=== PATIENT | male | born 1960 | race American Indian/Alaskan Native ===

== ENCOUNTER 2017-09-22 21:08 | Emergency (ER) | payer SELFPAY ==
[2017-09-22 22:18] VITALS: BP 134/90
[2017-09-22] MEDS ORDERED: MOTRIN PO ONE (22:19)
[2017-09-23] MEDS ORDERED: FLEXERIL PO ONE (00:45)
--- NOTE | 2017-09-23 01:10 | Emergency Department Report ---
ED Back Pain/Injury HPI - General Chief Complaint: Back Pain/Injury Stated Complaint: BACK PAIN Time Seen by Provider: 09/23/17 00:44 Source: patient Limitations: No Limitations - History of Present Illness Initial Comments: 57-year-old -[place] male comes in complaining of muscle spasms in his lower back 3 days. He reports he gets no relief from icy hot. He has not tried any [id number] pain medication. Patient reports that he has similar in the past. He does report he has had neck and shoulder fracture in 2003. Patient is aware that he has arthritis. MD Complaint: back pain, other (muscle spasms) -: days(s) (3) Similar Symptoms Previously: Yes Severity scale (0 -10): 10 Quality: aching, other (tightness) Consistency: constant Improves With: none Worsens With: movement, supine, sitting upright, walking Associated Symptoms: denies: numbness, difficulty urinating, incontinence, fever /chills Treatments Prior to Arrival: other (icy hot) - Related Data Previous Rx's Medication Instructions Recorded Last Taken Type Cyclobenzaprine [Flexeril 10 MG 10 mg PO TID #30 tablet 09/23/17 Unknown Rx TAB] Ibuprofen [Motrin 600 MG tab] 600 mg PO Q8H PRN #30 tablet 09/23/17 Unknown Rx Allergies Allergy/AdvReac Type Severity Reaction Status Date / Time No Known Allergies Allergy Verified 09/23/17 01:01 ED Review of Systems ROS: Stated complaint: BACK PAIN Other details as noted in HPI Comment: All other systems reviewed and negative Musculoskeletal: back pain, myalgia ED Past Medical Hx - Past Medical History Previous Medical History?: No Hx Arthritis: Yes - Surgical History Past Surgical History?: Yes Additional Surgical History: neck and should 2003 broken. Ankle leg 2014 broken - Social History Smoking Status: Current Every Day Smoker Substance Use Type: Alcohol, Marijuana - Medications Home Medications: Home Medications Medication Instructions Recorded Confirmed Last Taken Type Cyclobenzaprine [Flexeril 10 MG 10 mg PO TID #30 tablet 09/23/17 Unknown Rx TAB] Ibuprofen [Motrin 600 MG tab] 600 mg PO Q8H PRN #30 tablet 09/23/17 Unknown Rx ED Physical Exam - General Limitations: No Limitations General appearance: alert, in no apparent distress, other (appears to be uncomfortable in the chair) - Head Head exam: Present: atraumatic, normocephalic - Eye Eye exam: Present: normal appearance - ENT ENT exam: Present: mucous membranes moist - Respiratory Respiratory exam: Present: normal lung sounds bilaterally. Absent: respiratory distress - Cardiovascular Cardiovascular Exam: Present: regular rate, normal rhythm. Absent: systolic murmur, diastolic murmur, rubs, gallop - Extremities Exam Extremities exam: Present: normal inspection - Back Exam Back exam: Present: tenderness (lower back), muscle spasm - Neurological Exam Neurological exam: Present: alert, oriented X3 - Psychiatric Psychiatric exam: Present: normal affect, normal mood - Skin Skin exam: Present: warm, dry, intact, normal color. Absent: rash ED Course Vital Signs 09/22/17 22:13 Temperature 98.7 F Pulse Rate 84 Respiratory 12 Rate Blood Pressure 134/90 O2 Sat by Pulse 98 Oximetry ED Medical Decision Making - Medical Decision Making Patient has been evaluated by this provider fast track. Patient has a complaint of muscle spasms. He is denies any recent trauma to his back. I have given patient a Flexeril and ibuprofen while here in the emergency room. Discussed the patient I would discharge him on Flexeril and ibuprofen and for him to follow up with his primary care provider if symptoms persist or gets worse. Patient verbalized understanding. Critical care attestation.: If time is entered above; I have spent that time in minutes in the direct care of this critically ill patient, excluding procedure time. ED Disposition Clinical Impression: Muscle spasm of back Disposition: DC-01 TO HOME OR SELFCARE Is pt being admited?: No Does the pt Need Aspirin: No Condition: Stable Instructions: Muscle Spasm (ED) Additional Instructions: Please take medications as prescribed. If symptoms persist or gets worse please follow up with her primary care provider. Prescriptions: Cyclobenzaprine [Flexeril 10 MG TAB] 10 mg PO TID #30 tablet Ibuprofen [Motrin 600 MG tab] 600 mg PO Q8H PRN #30 tablet PRN Reason: Pain Referrals: PRIMARY CARE, [Primary Care Provider] - 3-5 Days [facility] [Provider Group] - 3-5 Days
== END 2017-09-23 01:20 | disposition home or self-care (01) ==
LOC: ED 21:08
DX: M62.830 Muscle spasm of back (principal); F17.200 Nicotine dependence, unspecified, uncomplicated; F12.10 Cannabis abuse, uncomplicated; M19.90 Unspecified osteoarthritis, unspecified site
CPT/HCPCS: 99282